=== PATIENT | male | born 1960 ===

== ENCOUNTER 2020-12-04 10:01 | Observation (INO) ==
[2020-12-04 11:19] LABS: ABS Eosinophils 0.1 10^3/ul (0-0.6); ABS Lymphocytes 1.1 10^3/ul (1.0-4.8); ABS Monocytes 0.8 10^3/ul (0-0.8); ABS Neutrophils 5.4 10^3/ul (1.5-7.7); Eosinophil % 1.7 %; Hematocrit 21 % (42-52); Hemoglobin 7.2 g/dL (14.0-18.0); Lymphocyte % 14.7 %; Mean Corpuscular HGB Conc 34 g/dL (31-36); Mean Corpuscular Hemoglobin 31 pg (27-31); Mean Corpuscular Volume 90 fL (80-94); Mean Platelet Volume 6.8 fL (7.4-10.4); Nucleated Red Blood Cells % 0.1; Platelet Count 309 10^3/uL (150-450); Red Blood Count 2.35 10^6 /uL (4.18-5.48); Red Cell Distribution Width 17 % (10-15); White Blood Count 7.4 10^3/uL (3.5-10.8)
[2020-12-04 11:25] LABS: Albumin 3.7 g/dL (3.2-5.2); Albumin/Globulin Ratio 1.5 (1-3); Calcium 9.5 mg/dL (8.6-10.3); EGFR Non-African American 112.4 (>60); Globulin 2.4 g/dL (2-4); Potassium 4.2 mmol/L (3.5-5.0); Total Bilirubin 0.3 mg/dL (0.2-1.0); Total Protein 6.1 g/dL (6.4-8.9)
[2020-12-04 11:29] LABS: INR 1.04 (0.86-1.15)
[2020-12-04 11:41] LABS: Activated Partial Thrombo Time 137.4 seconds (26.0-38.0)
[2020-12-04] MEDS ORDERED: Pantoprazole VIAL 40 MG VIAL IV ONE (11:49)
[2020-12-04] MEDS ORDERED: Pantoprazole 80 mg in NS BAG 80 MG/250 ML BAG IV ONE (12:30)
[2020-12-04] MEDS ORDERED: Morphine 4 MG/ML VIAL (1 ml) IV ONE (13:06)
[2020-12-04] MEDS ORDERED: Dextrose 50% Syringe 50 ml 25 GM/50 ML SYRINGE IV PUSH PRN (13:50)
[2020-12-04] MEDS ORDERED: Prochlorperazine 5 mg/ml 2 ml VIAL (10 mg) IV PRN (13:53)
[2020-12-04] MEDS ORDERED: NS 0.9% 1000 ml BAG 1,000 ML IV SCH (14:00)
[2020-12-04] MEDS: oxyCODONE/Acetamin 5/325 mg TAB PO PRN ×2 (17:49→23:56)
[2020-12-04 19:42] LABS: Hematocrit 21 % (42-52); Hemoglobin 7.1 g/dL (14.0-18.0)
[2020-12-05 02:23] LABS: Hematocrit 22 % (42-52); Hemoglobin 7.7 g/dL (14.0-18.0)
[2020-12-05] MEDS: Pantoprazole 80 mg in NS BAG 80 MG/250 ML BAG IV SCH ×2 (05:01→08:59)
[2020-12-05 06:01] LABS: Hematocrit 23 % (42-52)
[2020-12-05 06:18] LABS: Calcium 8.7 mg/dL (8.6-10.3); EGFR African American 190.6 (>60); EGFR Non-African American 157.5 (>60)
[2020-12-05] MEDS: oxyCODONE/Acetamin 5/325 mg TAB PO PRN ×2 (08:33→14:46)
[2020-12-05] MEDS ORDERED: fentaNYL 100 mcg/2 ml 50 MCG/ML VIAL ONE (08:57)
[2020-12-05] MEDS ORDERED: Midazolam 10 mg/10 ml VIAL 1 mg/ml 10 ml VIAL (10 mg) ONE (08:57)
[2020-12-05 14:39] LABS: Hematocrit 25 % (42-52); Hemoglobin 8.7 g/dL (14.0-18.0)
[2020-12-05 16:04] VITALS: BP 156/66
== END 2020-12-05 17:00 | disposition home or self-care (01) ==
LOC: ED 10:01 → MED 10:01
PROVIDERS: ADMIT Internal Medicine; ATTEND Internal Medicine